=== PATIENT | female | born 1975 | race Caucasian/White ===

== ENCOUNTER → 2020-08-25 14:46 | Outpatient (CLI) | payer OTHER, SELFPAY ==
--- NOTE | ~2020-08-25 | MM_ITS ---
EXAMINATION: MM screening jessica BI w stephania HISTORY: Screening TECHNIQUE: Craniocaudal and mediolateral oblique 3-D tomosynthesis images were obtained and synthetic 2-D images were generated. CAD analysis was submitted and interpreted. COMPARISON: No prior mammogram is available for comparison at this institution. BREAST PARENCHYMAL COMPOSITION: There are scattered areas of fibroglandular density. FINDINGS: There is a focal asymmetry in the upper central aspect of the right breast, middle third. T here is no mammographic evidence for malignancy in the left breast. IMPRESSION: 1. Focal right breast asymmetry upper central aspect. 2. Additional mammographic views and possible breast ultrasound are recommended. BI-RADS Category 0: Incomplete: Needs additional imaging evaluation. Reviewed, dictated and finalized at location A. STAMPING PRESS OPERATOR IMPRESSION: 1. Focal right breast asymmetry upper central aspect. 2. Additional mammographic views and possible breast ultrasound are recommended . BI-RADS Category 0: Incomplete: Needs additional imaging evaluation.
== END ==
PROVIDERS: Visit Provider Obstetrics & Gynecology
DX: Z12.31 Encounter for screening mammogram for malignant neoplasm of breast (principal); R92.8 Other abnormal and inconclusive findings on diagnostic imaging of breast
CPT/HCPCS: 77063; 77067

== ENCOUNTER → 2020-09-30 10:42 | Outpatient (CLI) | payer OTHER, SELFPAY ==
--- NOTE | ~2020-09-30 | US_ITS ---
US right upper quadrant INDICATION: Right upper quadrant and back pain PROCEDURE: Realtime right upper abdominal ultrasound. COMPARISON: Ultrasound dated 06/29/2011 FINDINGS: The pancreas is normal without focal mass or pancreatic ductal dilation. Liver echotexture is normal without focal mass or intrahepatic biliary dilatation. There is normal directional flow i n the portal vein. The gallbladder is normal without stones, gallbladder wall thickening or pericholecystic fluid. Comm on bile duct measures 4 mm. No sonographic Samson's sign. IMPRESSION: 1: Normal limited abdominal ultrasound. Reviewed, dictated and finalized at location A.
== END ==
PROVIDERS: PCP Emergency Medicine; Visit Provider Emergency Medicine
DX: R10.9 Unspecified abdominal pain (principal)
CPT/HCPCS: 76705

== ENCOUNTER → 2020-10-02 09:00 | Outpatient (CLI) | payer OTHER, SELFPAY ==
--- NOTE | ~2020-10-02 | MMUS_ITS ---
EXAMINATION: MM diagnostic jessica RT w stephania, US breast RT limited HISTORY: Focal asymmetry of the right breast on screening mammogram TECHNIQUE: Additional 3-D tomosynthesis images of the right breast were performed and synthetic 2-D i mages were generated. CAD analysis was submitted and interpreted. High resolution limited right breas t ultrasound was performed. COMPARISON: 08/25/2020 FINDINGS: MAMMOGRAPHIC FINDINGS: No persistent focal asymmetry is identified with spot compression of the right breast. There is no ornelas spicious mass, calcification, or architectural distortion. ULTRASOUND: There is no evidence of focal abnormal solid or cystic mass in the vicinity of the mammographic findi ng in question. IMPRESSION: 1. No mammographic or sonographic evidence of malignancy. 2. Recommend routine screening mammography in one year. BI-RADS Category 1: Negative Reviewed, dictated and finalized at location A. IMPRESSION: 1. No mammographic or sonographic evidence of malignancy. 2. Recommend routine screening mammography in one year. BI-RADS Category 1: Negative
== END ==
PROVIDERS: Visit Provider Obstetrics & Gynecology
DX: R92.8 Other abnormal and inconclusive findings on diagnostic imaging of breast (principal)
CPT/HCPCS: 76642; 77061; 77065; G0279

== ENCOUNTER 2020-10-07 11:49 | Outpatient (CLI) | payer OTHER, SELFPAY ==
--- NOTE | ~2020-10-07 | MR_ITS ---
EXAMINATION: MR lumbar spine wo [facility] EXAM DATE: 10/07/2020 12:42 INDICATION: Dorsalgia. Paresthesia. Bowel and bladder dysfunction, difficulty walking. States injury 11 weeks ago when bending over. TECHNIQUE: Multi-sequential, multiplanar MR images of the lumbar spine were obtained without contrast . Sagittal T1, T2, T2 fat saturation images. Axial T2 weighted images. There is no prior study for comparison. FINDINGS: The conus medullaris terminates at the T12-L1 level and has normal signal intensity and mor phology. There is mild disc disease at L4-5 and L5-S1. There are no suspicious marrow signal abnorma lities. The vertebral bodies are aligned in the AP dimension. Paraspinal soft tissue is unremarkable. Level by level evaluation: T12-L1: Disc does not extend beyond the endplate margin. Facet arthropathy: None. Neural foraminal stenosis: No stenosis. Central canal stenosis: No stenosis. L1-L2: Disc does not extend beyond the endplate margin. Facet arthropathy: None. Neural foraminal stenosis: No stenosis. Central canal stenosis: No stenosis. L2-L3: Disc does not extend beyond the endplate margin. Facet arthropathy: Mild. Neural foraminal stenosis: No stenosis. Central canal stenosis: No stenosis. L3-L4: There is a mild diffuse disc bulge. Facet arthropathy: Mild to moderate. Neural foraminal stenosis: Mild to moderate bilateral. Central canal stenosis: Mild. L4-L5: There is a mild to moderate diffuse disc bulge. Facet arthropathy: Moderate. Neural foraminal stenosis: Mild to moderate bilateral. Central canal stenosis: Moderate. L5-S1: There is a mild diffuse disc bulge. Facet arthropathy: Mild. Neural foraminal stenosis: Mild bilateral. Central canal stenosis: Mild. IMPRESSION: 1. Mild to moderate lower lumbar spondylosis. Reviewed, dictated and finalized at location A.
== END 2020-10-07 11:50 | disposition home or self-care (01) ==
PROVIDERS: Visit Provider Emergency Medicine
DX: M47.817 Spondylosis without myelopathy or radiculopathy, lumbosacral region (principal); M48.07 Spinal stenosis, lumbosacral region; R20.2 Paresthesia of skin; K59.9 Functional intestinal disorder, unspecified; N31.9 Neuromuscular dysfunction of bladder, unspecified; G83.9 Paralytic syndrome, unspecified
CPT/HCPCS: 72148

== ENCOUNTER 2022-04-19 09:55 | Outpatient (CLI) | payer OTHER, SELFPAY ==
--- NOTE | ~2022-04-19 | NM_ITS ---
EXAMINATION: NM hepatobiliary wo pharm DATE: 04/19/2022 13:17 INDICATION: Abdominal pain COMPARISON: None. TECHNIQUE: 4.6 mCi Tc-99m mebrofenin (Choletec) was administered intravenously. Scintigraphic images of the abdomen were obtained for one hour. At the 1 hour time point, the patient drank 8 oz Ensure, and imaging was continued for 60 minutes. Gallbladder ejection fraction was calculated by the technol ogist. FINDINGS: There is normal clearance of radiotracer from the blood pool. There is homogeneous tracer u ptake by the liver. Activity progresses to the bowel and gallbladder. The gallbladder ejection fract ion (GBEF) is 74%. Note that with this technique, normal GBEF >= 33%. IMPRESSION: 1. Normal hepatobiliary scan Reviewed, dictated and finalized at location B.
== END 2022-04-19 09:56 | disposition home or self-care (01) ==
PROVIDERS: PCP Emergency Medicine; Visit Provider Emergency Medicine
DX: R10.9 Unspecified abdominal pain (principal)
CPT/HCPCS: 78226; A9537

== ENCOUNTER 2022-06-14 01:44 | Day surgery (SDC) | payer OTHER, SELFPAY ==
[2022-06-01 10:02] VITALS: BMI 39.4
[2022-06-14 07:33] VITALS: BP 121/87; PULSE 89; RESP 18; TEMP 36.1; O2SAT 100; BMI 38.3
[2022-06-14] MEDS: LACTATED RINGERS 1,000 ML 150 ML IV CONT (07:52)
--- NOTE | 2022-06-14 07:55 | WPDANESEPPF ---
Anes - Initial Pre Proc Eval Procedure: Operation Date: 06/14/22 08:45 Proposed Procedures p Esophagogastroduodenoscopy & Colonoscopy - Joe Gandhi MD Date/Time: 06/14/22 07:55 Surgeon: Joe Gandhi MD Pre Op Diagnosis: n/v,RUQ pain, change in bowel habits Patient Data Age: 47 Gender: F Height: 1.6 m Weight: 98.2 kg Last Vital Signs Temp 36.1 C L 06/14/22 07:33 Pulse 89 06/14/22 07:33 Resp 18 06/14/22 07:33 BP 121/87 06/14/22 07:33 Pulse Ox 100 06/14/22 07:33 O2 Del Method Room Air 06/14/22 07:33 Allergies Allergy/AdvReac Type Severity Reaction Status Date / Time No Known Allergies Allergy Verified 06/14/22 07:42 Home Medications Medication Instructions Recorded Confirmed Type metoprolol tartrate 50 mg tablet 50 mg PO DAILY 10/06/20 06/14/22 History tramadol 50 mg tablet (Ultram) 50 mg PO Q6H PRN pain #30 tabs 10/12/20 06/14/22 Rx ondansetron 4 mg disintegrating 4 mg PO Q6H PRN nausea and 04/13/22 06/14/22 Rx tablet vomiting #30 tabs Patient hx anesthesia problems: none Family hx anesthesia problems: none Results Review: All pre-operative results and documents have been reviewed as part of the pre-operative evaluation. [facility] Past Medical History Medical History Severe back pain Social History Social History (Updated 05/03/22 @ 16:10 by ARI McclureN-C) Smoking packs per day: 1 Smoking cigarettes per day: 20.0 Years smoked: 25 Smoking pack-years: 25.00 Smoking status: Former smoker Tobacco type: cigarettes Additional smoking assessment comments: 1.5 ppd for years, quit x 7 years then light smoker, then quit 01/07/21 Drinks per week: 6 Alcohol use details: 6 pack beer on weekend Substance use: never Substance use type: does not use Living arrangements: with family Spiritual care concerns: No Anes - Eval Final PreProcedure Day of Procedure 06/14/22 07:55 Patient weight: obese Heart: regular rate and rhythm Lungs: clear to auscultation Airway: Mallampati scale class II Neurological: alert and oriented Last oral intake: >/= 8 hours ASA classification: II Emergent: no Anesthetic plan: proceed Anesthesia type and monitoring: general GIVS and standard monitoring Results Review: All pre-operative results and documents have been reviewed as part of the pre-operative evaluation. Informed Consent: The patient's anesthetic plan and its attendant risks and benefits were discussed with the patient/family/POA. Questions were solicited and answers provided to the satisfaction of the patient/family/POA.
--- NOTE | 2022-06-14 08:36 | PM.HPGS ---
History of Present Illness History of Present Illness Consent: Risks, benefits, and alternatives have been discussed and questions answered. Patient agrees to proceed with procedure. Chief complaint: n/v,RUQ pain, change in bowel habits Narrative: Deloris Sapp is a 47 year old female with almost a year of intermittent nausea and ruq pain, negative imaging. Also needs screening colonoscopy Review of Systems Constitutional: Constitutional: Denies headache(s) and Denies weakness Eyes: Eyes: Denies blurry vision ENT: Reports Normal hearing present, Denies headache(s) and Denies neck pain Cardiovascular: Cardiovascular: Denies chest pain and Denies dyspnea Respiratory: Respiratory: Denies dyspnea Gastrointestinal: Gastrointestinal: Reports no additional gastrointestinal complaints Genitourinary: Genitourinary: Denies dysuria Musculoskeletal: Musculoskeletal: Denies neck pain Integumentary/Breasts: Skin/Breast: Denies dry skin Neurologic: Reports Normal hearing present, Denies headache(s) and Denies weakness Psychiatric: Psychiatric: Denies anxiety Endocrine: Endocrine: Denies change in body appearance Hematologic/Lymphatic: Hematologic/Lymphatic: Denies easy bleeding Allergic/Immunologic: Allergic/Immunologic: Denies urticaria PMF Past Medical History Medical History (Updated 06/14/22 @ 08:36 by Joe Gandhi MD) Colon cancer screening Severe back pain Social History Social History (Updated 05/03/22 @ 16:10 by ARI McclureN-C) Smoking packs per day: 1 Smoking cigarettes per day: 20.0 Years smoked: 25 Smoking pack-years: 25.00 Smoking status: Former smoker Tobacco type: cigarettes Additional smoking assessment comments: 1.5 ppd for years, quit x 7 years then light smoker, then quit 01/07/21 Drinks per week: 6 Alcohol use details: 6 pack beer on weekend Substance use: never Substance use type: does not use Living arrangements: with family Spiritual care concerns: No Meds Home Medications and Allergies Home Medications Medication Instructions Recorded Confirmed Type metoprolol tartrate 50 mg tablet 50 mg PO DAILY 10/06/20 06/14/22 History tramadol 50 mg tablet (Ultram) 50 mg PO Q6H PRN pain #30 tabs 10/12/20 06/14/22 Rx ondansetron 4 mg disintegrating 4 mg PO Q6H PRN nausea and 04/13/22 06/14/22 Rx tablet vomiting #30 tabs Allergies Allergy/AdvReac Type Severity Reaction Status Date / Time No Known Allergies Allergy Verified 06/14/22 07:42 Vital Signs Vital Signs - 24 hr 06/14/22 07:33 Temperature 96.9 F L Pulse Rate 89 Respiratory Rate 18 Blood Pressure 121/87 Pulse Oximetry 100 Oxygen Delivery Room Air Exam Const: General: comfortable and no acute distress HENMT: Face/Nose/Sinus: Normal nares present Eyes: General: appearance normal, both eyes and all related structures Neck: Neck: no JVD Resp: Auscultation: clear to auscultation bilaterally Cardio: Rate: regular rate Rhythm: regular rhythm GI: Inspection: non-distended GI Palp: Yes Soft to palpation Skin: General skin exam: normal color Neuro: General: gait normal Speech: normal speech Extrem: General: normal to inspection Psych: Mental Status: mental status grossly normal Assessment and Plan Assessment and plan (1) Nausea & vomiting: Code(s): R11.2 - Nausea with vomiting, unspecified Status: Acute Assessment and Plan: egd with bx (2) RUQ abdominal pain: Code(s): R10.11 - Right upper quadrant pain Status: Acute Assessment and Plan: negative hida and ultrasound (3) Colon cancer screening: Code(s): Z12.11 - Encounter for screening for malignant neoplasm of colon Status: Acute Assessment and Plan: colonoscopy
--- NOTE | 2022-06-14 09:03 | SUR.OPER ---
EGD START: 843; END: 847. COLONOSCOPY START: 852; END: 901.
[2022-06-14 09:07] VITALS: BP 109/65; PULSE 62; RESP 15; O2SAT 99
[2022-06-14 09:17] VITALS: BP 109/70; PULSE 61; RESP 22; O2SAT 97
[2022-06-14 09:27] VITALS: BP 126/91; PULSE 76; RESP 18; O2SAT 98
== END 2022-06-14 09:46 | disposition home or self-care (01) ==
PROVIDERS: PCP Emergency Medicine; Visit Provider Internal Medicine Gastroenterology
PROC: 0DJ08ZZ Inspection of Upper Intestinal Tract, Via Natural or Artificial Opening Endoscopic (ICD-10-PCS; CPT 43235; principal; 2022-06-14 08:45)
DX: Z12.11 Encounter for screening for malignant neoplasm of colon (principal); K21.00 Gastro-esophageal reflux disease with esophagitis, without bleeding; Z87.891 Personal history of nicotine dependence; E66.9 Obesity, unspecified; Z68.38 Body mass index [BMI] 38.0-38.9, adult
CPT/HCPCS: 45378; 43239; 88305; J2704; J3010; J7120

== ENCOUNTER 2022-07-08 13:31 | Outpatient (CLI) | payer OTHER, SELFPAY ==
--- NOTE | ~2022-07-08 | CT_ITS ---
EXAMINATION: CT abdomen pelvis w con INDICATION: Nausea and vomiting, right upper quadrant pain TECHNIQUE: Computed tomographic images of the abdomen and pelvis were obtained after the administrati on of 100 cc of Omnipaque 350 intravenous contrast. The dose-length product (DLP) was 828.57 mGy-cm. Automated exposure control and iterative reconstruction technique were employed. COMPARISON: None available FINDINGS: Minimal dependent atelectasis is present in the lung bases. The heart size is normal. There is a 5 mm cyst in the right hepatic lobe. The spleen, pancreas, gallbladder, and adrenal glands are normal. The kidneys are unremarkable. There is an umbilical hernia containing fat. No pathologically enlarged abdominal or pelvic lymph nodes are identified. There is no free intraperitoneal gas or evid ence of bowel obstruction. There is some performed stool in the distal small bowel, suggestive of slo w transit. The appendix is normal. IMPRESSION: 1. No CT correlate for the patient's symptoms. Reviewed, dictated and finalized at location B. S DEPARTMENT MANAGER
== END 2022-07-08 13:32 | disposition home or self-care (01) ==
PROVIDERS: PCP Emergency Medicine; Visit Provider Nurse Practitioner
DX: R11.2 Nausea with vomiting, unspecified (principal); R10.11 Right upper quadrant pain
CPT/HCPCS: 74177; Q9967

== ENCOUNTER 2022-07-19 07:28 | Outpatient (CLI) | payer OTHER, SELFPAY ==
--- NOTE | ~2022-07-19 | US_ITS ---
EXAMINATION: US right upper quadrant DATE: 07/19/2022 08:14 INDICATION: Right upper quadrant pain TECHNIQUE: Multiple grayscale and Doppler ultrasound images of the abdomen were obtained. COMPARISON: CT, 07/08/2022 FINDINGS: The head and body of the pancreas are normal. The pancreatic tail is obscured by bowel gas. The liver is normal with normal echogenicity and echotexture. No surface nodularity. Normal hepatope hayden flow in the main portal vein. The gallbladder is normal with no abnormal wall thickening, pericho lecystic fluid or stones. The normal common bile duct measures 4 mm. There was no sonographic Samson sign. IMPRESSION: 1. Normal sonographic study of the gallbladder. Reviewed, dictated and finalized at location L. IAN HISTORY PROFESSOR
== END 2022-07-19 07:29 | disposition home or self-care (01) ==
PROVIDERS: PCP Emergency Medicine; Visit Provider Emergency Medicine
DX: R10.11 Right upper quadrant pain (principal)
CPT/HCPCS: 76705

== ENCOUNTER 2023-07-06 08:54 | Outpatient (CLI) | payer OTHER, SELFPAY ==
--- NOTE | 2023-07-06 09:13 | ECG_ITS ---
Measurements Intervals [place] Rate: 73 P: 38 AL: 143 QRS: -37 QRSD: 86 T: 11 QT: 365 QTc: 404 Interpretive Statements SINUS RHYTHM LOW QRS VOLTAGE IN PRECORDIAL LEADS [QRS DEFLECTION < 1.0 mV IN CHEST LEADS] INFERIOR MYOCARDIAL INFARCTION , PROBABLY OLD [40+ ms Q WAVE AND/OR ST/T ABNORMALITY IN II/aVF] NO PREVIOUS ECG AVAILABLE FOR COMPARISON Electronically Signed On 07-06-2023 9:18:28 WAITER/WAITRESS FORMAL by Gypsy NEWELL
--- NOTE | 2023-07-06 12:28 | EST_ITS ---
Patient Info Name: Deloris Sapp Age: 48 years : 1975 Gender: Female Ht: 63 in Wt: 215 lbs BSA: 2.13 m2 HR: 72 bpm BP: 124 / 69 mmHg Heart Rhythm: Sinus Rhythm Exam Date: 07/06/2023 12:29 PM Patient Status: Outpatient Admit Date: 07/06/2023 Staff Ordering Physician: Aron Mayberry MD Attending Provider: Aron Mayberry MD Exercise Technologist: Connie Trimble CT Nurse: Danya Deleon APN Exam Type: CA stress test treadmill Study Info A treadmill exercise stress test was performed. Summary 1. Exercise capacity fair to good at 6-10 METS. 2. Occasional PVCs. 3. Baseline ECG artifact during exercise which limits interpretation of test, however, no clear evidence of ischemic changes during exercise. 4. Stress test supervised by Danya Walker NP. Stress test interpreted by Gypsy Qureshi MD. Protocol: Nael Rest HR: 72 bpm Peak HR: 148 bpm Rest Sys BP: 124 mmHg Peak Sys BP: 170 mmHg Max Pred HR: 174 bpm % Max Pred HR: 85 % Target HR: 148 bpm Max RPP: 25,160 bpm*mmHg Target HR Summary: Patient's target heart rate was achieved Total Time: 6 min : 35 sec Rest Martinez BP: 69 mmHg Peak Martinez BP: 76 mmHg Resting ECG Sinus rhythm. Stress ECG Sinus tachycardia. Baseline ECG artifact during exercise which limits interpretation of test, however, no clear evidence of ischemic changes during exercise. Arrhythmias Occasional PVCs. Report Signatures
== END 2023-07-06 08:55 | disposition home or self-care (01) ==
PROVIDERS: PCP Emergency Medicine; Visit Provider Emergency Medicine
DX: R07.9 Chest pain, unspecified (principal); R06.02 Shortness of breath
CPT/HCPCS: 93005; 93017

== ENCOUNTER 2023-07-12 06:35 | Outpatient (CLI) | payer OTHER, SELFPAY ==
--- NOTE | ~2023-07-12 | CT_ITS ---
Clinical Indication: Chest pain CT Scan of the Chest, Abdomen, and Pelvis with Contrast: Technique: Contiguous sections were acquired throughout the chest, abdomen, and pelvis after intraven ous administration of 100 cc of Omnipaque 350. Dose reduction technique was used on this scan by jovanni munguiaing automated exposure control and iterative reconstruction technique. The dose-length product (DL P) was 1144.77 mGy-cm. COMPARISON: 07/08/2022 Findings: There is no evidence of any significant mediastinal, hilar or axillary lymphadenopathy. The mediastin al soft tissues and vascular structures appear normal. There is no evidence of pleural or pericardial effusion. The lungs are clear. No pulmonary nodules or infiltrates are noted. The liver, spleen, pancreas, gallbladder, adrenals and kidneys are within normal limits. No evidence of aortic aneurysm. No lymphadenopathy. No bowel obstruction or bowel wall thickening. Small fat-containing umbilical hernia present. Normal appendix. Urinary bladder is unremarkable. Probable 3 cm left ovarian cyst. No adnexal mass seen. No ascites. Impression: Small fat-containing umbilical hernia. 3 cm left ovarian cyst. Reviewed, dictated and finalized at [facility]. TATION OPERATOR HELPER GENERATION Impression: Small fat-containing umbilical hernia. 3 cm left ovarian cyst.
== END 2023-07-12 06:36 | disposition home or self-care (01) ==
PROVIDERS: PCP Emergency Medicine; Visit Provider Emergency Medicine
DX: R07.9 Chest pain, unspecified (principal); R06.02 Shortness of breath; N83.202 Unspecified ovarian cyst, left side; K42.9 Umbilical hernia without obstruction or gangrene
CPT/HCPCS: 71260; 74177; Q9967

== ENCOUNTER → 2023-08-04 15:06 | Outpatient (CLI) | payer OTHER, SELFPAY ==
--- NOTE | ~2023-08-04 | MM_ITS ---
EXAMINATION: MM screening jessica BI w stephania HISTORY: Screening TECHNIQUE: Craniocaudal and mediolateral oblique 3-D tomosynthesis images were obtained and synthetic 2-D images were generated. CAD analysis was submitted and interpreted. COMPARISON: 08/25/2020 BREAST PARENCHYMAL COMPOSITION: There are scattered areas of fibroglandular density. FINDINGS: There is no evidence of suspicious mass, calcification, or architectural distortion to sugg est malignancy in either breast. There has been no suspicious interval change. IMPRESSION: 1. No mammographic evidence of malignancy. 2. Recommend routine screening mammography in one year. BI-RADS Category 1: Negative Reviewed, dictated and finalized at location A. NSION ASSOCIATE
== END ==
PROVIDERS: PCP Obstetrics & Gynecology; Visit Provider Obstetrics & Gynecology
DX: Z12.31 Encounter for screening mammogram for malignant neoplasm of breast (principal)
CPT/HCPCS: 77063; 77067

== ENCOUNTER 2023-09-11 09:57 | Outpatient (CLI) | payer OTHER, SELFPAY | END 2023-09-11 09:58 | disposition home or self-care (01) | LOC: ANHSURGERY 10:05 | PROVIDERS: PCP Emergency Medicine; Visit Provider Surgery | DX: N83.209 Unspecified ovarian cyst, unspecified side (principal); Z01.818 Encounter for other preprocedural examination | CPT/HCPCS: 36415; 86850; 86900; 86901 ==

== ENCOUNTER 2023-09-14 01:24 | Day surgery (SDC) | payer OTHER, SELFPAY ==
[2023-09-08 11:18] VITALS: BMI 36.8
--- NOTE | 2023-09-08 11:24 | PC.NURSE ---
Report to the Outpatient Waiting Room, entrance under the green pavilion located off [facility], at time 10:00 on date 09/14/23. Planned Procedure Time: 12:00. Time changes happen often and if your time is changed the preop area will call you the afternoon before. - You and your visitor will be asked to self-screen and do not enter if you have any COVID symptoms. - A mask is optional within the hospital at this time. Patients may have clear liquids (water, carbonated beverages, clear teas, apple juice) until 3 hours prior to surgery (4:30) with a maximum of 20 ounces. - No food from midnight until time of surgery Take the following medications with a SIP of water the morning of surgery: METOPROLOL DO NOT STOP ANY OF YOUR OTHER PRESCRIPTION MEDICATIONS PRIOR TO SURGERY ?EXCEPT THE FOLLOWING Medications to discontinue per physician: N/A Date to take last dose: N/A Please no make-up, nail burkinan, hairspray, perfume, deodorant, or body powder the day of surgery. No jewelry (including any body piercings) or valuables the day of surgery, leave them at home. Please take a shower or bath the night before, or the morning of, surgery with an antibacterial soap. Wear comfortable, loose fitting clothing. - Jewelry must be removed prior to entering the operating room. Rings and piercings that are not removed may be cut off. - The hospital will not accept responsibility for valuables. - Please leave all valuables, including medications, at home the day of surgery. If you are going home after surgery, a licensed tilt tray driver must drive you home. - NO public transportation without another adult if you receive anesthesia. - We recommend that an adult stay with you for 24 hours following discharge. - We also recommend that you do not drive, make important decision, drink alcoholic beverages, or take any drugs that were not prescribed by your health care provider for at least 24 hours after your discharge time. Follow any additional instructions given to you from your surgeon. If you or anyone in your household have experienced Covid symptoms in the past week, please notify your surgeon or the nurse liaison at the phone number below for possible testing. Telephone instructions given to WALI BEGUM and asked if any additional questions and then verbalized understanding. Patient advised to call surgeon office or pre surgery nurse liaison [phone] if any additional questions.
--- NOTE | 2023-09-13 13:15 | WPDANESEPPF ---
Anes - Initial Pre Proc Eval Procedure: Operation Date: 09/14/23 12:00 Proposed Procedures p Robotic Assisted Incarcerated Umbilical Hernia Repair with Mesh - Soledad Brewster MD s Laparoscopic Left Salpingo-oophorectomy - Jorge Simmons MD Date/Time: 09/13/23 13:15 Surgeon: Soledad Brewster MD Pre Op Diagnosis: Incarcerated Umb Hernia Patient Data Age: 48 Gender: F Height: 1.6 m Weight: 94.4 kg Allergies Allergy/AdvReac Type Severity Reaction Status Date / Time No Known Allergies Allergy Verified 09/08/23 11:18 Home Medications Medication Instructions Recorded Confirmed Type omeprazole 40 mg capsule,delayed See Rx Instructions .Route 07/12/22 09/08/23 Rx release .COMPLEX #90 caps metoprolol succinate 50 mg 50 mg PO .COMPLEX 07/07/23 09/08/23 History tablet,extended release 24 hr Patient hx anesthesia problems: none Family hx anesthesia problems: none Results Review: All pre-operative results and documents have been reviewed as part of the pre-operative evaluation. [facility] Past Medical History Medical History (Updated 09/14/23 @ 11:27 by Kai Delgado DO) Colon cancer screening MVP (mitral valve prolapse) Neurocardiogenic syncope Severe back pain Family History Family History Father Family history of cardiovascular disease Mother Family history of cardiovascular disease Social History Social History Smoking packs per day: 1 Smoking cigarettes per day: 20.0 Years smoked: 15 Smoking pack-years: 15.00 Smoking status: Former smoker Tobacco type: cigarettes Smoking end date: 07/10/20 Additional smoking assessment comments: 1.5 ppd for years, quit x 7 years then light smoker, then quit 01/07/21 Alcohol intake: current Drinks per week: 4 Alcohol use details: 6 pack beer on weekend Substance use: never Substance use type: does not use Lack of Transportation: No Lack of Food: Never True Current Housing: I Have Housing Concerned About Future Housing: No Difficulty Paying Gas/Electric Bills: No Difficulty Paying for Meds: No Currently Unemployed: No Education: Trade/Vocational Certificate Difficulty w/ Childcare or Family Care: No Living arrangements: with family Spiritual care concerns: No Anes - Eval Final PreProcedure Day of Procedure 09/13/23 13:15 Patient weight: obese Heart: regular rate and rhythm Lungs: clear to auscultation Airway: Mallampati scale class II Neurological: alert and oriented Last oral intake: >/= 8 hours ASA classification: II Emergent: no Anesthetic plan: proceed Anesthesia type and monitoring: general ETT and standard monitoring Results Review: All pre-operative results and documents have been reviewed as part of the pre-operative evaluation. Informed Consent: The patient's anesthetic plan and its attendant risks and benefits were discussed with the patient/family/POA. Questions were solicited and answers provided to the satisfaction of the patient/family/POA.
[2023-09-14] VITALS (12 sets, daily range): BP systolic 113–140; BP diastolic 68–83; PULSE 61–89; RESP 13–18; TEMP 36.7–36.8; O2SAT 92–100
[2023-09-14] MEDS: LACTATED RINGERS 1,000 ML 30 ML IV CONT ×2 (10:30→14:06)
[2023-09-14] MEDS: KETOROLAC 15 MG/ML VIAL (*BKC) IV PUSH ×2 (11:27→16:31)
[2023-09-14] MEDS: ACETAMINOPHEN 500 MG TABLET 1000 MG PO (11:27)
--- NOTE | 2023-09-14 11:45 | PM.IMHP ---
H&P: HPI History of Present Illness Date/Time: 09/14/23 11:45 Chief Complaint: incarcerated umbilical hernia Narrative: Ms. Sapp presents to the office at the request of Dr. Mayberry for evaluation.? She has a long-term history of periumbilical pain that intermittently radiates across her lower abdomen.? She underwent gallbladder work-up which was negative.? She has MVP and recently was experiencing SOB.? CT chest/abd/pel was performed and showed a small fat-containing umbilical hernia and a 3 cm left ovarian cyst.? No fevers, N/V, diarrhea, abdominal distesion, or change in bowel habits.? She is going to undergo concordant L SO c Dr. Simmons. Review of Systems Review of Systems: All systems reviewed & are unremarkable except as noted in HPI and below PMFSH Past Medical History Medical History Colon cancer screening MVP (mitral valve prolapse) Neurocardiogenic syncope Severe back pain Family History Family History Father Family history of cardiovascular disease Mother Family history of cardiovascular disease Social History Social History Smoking packs per day: 1 Smoking cigarettes per day: 20.0 Years smoked: 15 Smoking pack-years: 15.00 Smoking status: Former smoker Tobacco type: cigarettes Smoking end date: 07/10/20 Additional smoking assessment comments: 1.5 ppd for years, quit x 7 years then light smoker, then quit 01/07/21 Alcohol intake: current Drinks per week: 4 Alcohol use details: 6 pack beer on weekend Substance use: never Substance use type: does not use Lack of Transportation: No Lack of Food: Never True Current Housing: I Have Housing Concerned About Future Housing: No Difficulty Paying Gas/Electric Bills: No Difficulty Paying for Meds: No Currently Unemployed: No Education: Trade/Vocational Certificate Difficulty w/ Childcare or Family Care: No Living arrangements: with family Spiritual care concerns: No Meds Home Medications and Allergies Home Medications Medication Instructions Recorded Confirmed Type omeprazole 40 mg capsule,delayed See Rx Instructions .Route 07/12/22 09/08/23 Rx release .COMPLEX #90 caps metoprolol succinate 50 mg 50 mg PO .COMPLEX 07/07/23 09/08/23 History tablet,extended release 24 hr Allergies Allergy/AdvReac Type Severity Reaction Status Date / Time No Known Allergies Allergy Verified 09/08/23 11:18 Exam Const: General: cooperative, comfortable and no acute distress Resp: Auscultation: clear to auscultation bilaterally Cardio: Rate: regular rate Rhythm: regular rhythm GI: Inspection: normal to inspection and non-distended GI Palp: Yes abdominal tenderness, Yes Soft to palpation, Yes Tenderness to palpation present (GI) and Yes Hernia present Other: incarcerated [facility]H c mod TTP Assessment and Plan Assessment and plan (1) Umbilical hernia with obstruction, without gangrene: Code(s): K42.0 - Umbilical hernia with obstruction, without gangrene Status: Acute Assessment and Plan: Set up for robotic assisted repair with mesh (2) Ovarian cyst: Code(s): N83.209 - Unspecified ovarian cyst, unspecified side Status: Acute Assessment and Plan: Dr. Simmons planning on doing left salpingo oophorectomy (3) MVP (mitral valve prolapse): Code(s): I34.1 - Nonrheumatic mitral (valve) prolapse Status: Acute Assessment and Plan: cleared per Dr. Hoskins
--- NOTE | 2023-09-14 11:49 | WPDHPUPDATE1 ---
History and Physical Update Update Date/Time: 09/14/23 11:49 History and Physical has been reviewed, including an updated exam of the patient. There are NO changes in the patient's condition. Risks, benefits, and alternatives have been discussed and questions answered. Patient agrees to proceed with procedure.
[2023-09-14] MEDS: SCOPOLAMINE 1 MG PATCH 1 PATCH TRANSDERM (11:53)
--- NOTE | 2023-09-14 11:56 | PM.IMHP ---
H&P: HPI History of Present Illness Date/Time: 09/14/23 11:56 Chief Complaint: Painful ovarian cyst. Narrative: 48 y/o who is here for an umbilical hernia repair with Dr. Brewster. She also has a 3cm left ovarian cyst and longstanding pain in the left adnexa. She'd like to have an LSO. Review of Systems Review of Systems: All systems reviewed & are unremarkable except as noted in HPI and below PMFSH Past Medical History Medical History Colon cancer screening MVP (mitral valve prolapse) Neurocardiogenic syncope Severe back pain Family History Family History Father Family history of cardiovascular disease Mother Family history of cardiovascular disease Social History Social History Smoking packs per day: 1 Smoking cigarettes per day: 20.0 Years smoked: 15 Smoking pack-years: 15.00 Smoking status: Former smoker Tobacco type: cigarettes Smoking end date: 07/10/20 Additional smoking assessment comments: 1.5 ppd for years, quit x 7 years then light smoker, then quit 01/07/21 Alcohol intake: current Drinks per week: 4 Alcohol use details: 6 pack beer on weekend Substance use: never Substance use type: does not use Lack of Transportation: No Lack of Food: Never True Current Housing: I Have Housing Concerned About Future Housing: No Difficulty Paying Gas/Electric Bills: No Difficulty Paying for Meds: No Currently Unemployed: No Education: Trade/Vocational Certificate Difficulty w/ Childcare or Family Care: No Living arrangements: with family Spiritual care concerns: No Meds Home Medications and Allergies Home Medications Medication Instructions Recorded Confirmed Type omeprazole 40 mg capsule,delayed See Rx Instructions .Route 07/12/22 09/08/23 Rx release .COMPLEX #90 caps metoprolol succinate 50 mg 50 mg PO .COMPLEX 07/07/23 09/08/23 History tablet,extended release 24 hr Allergies Allergy/AdvReac Type Severity Reaction Status Date / Time No Known Allergies Allergy Verified 09/14/23 11:58 Exam Const: Orientation/consciousness: patient oriented x3 Other: Well-developed, well-nourished female in no acute distress. Neck: Thyroid: thyroid normal Lymphatic: no lymphadenopathy noted (in neck, axilla or inguinal nodes) Resp: Effort & Inspection: normal respiratory effort Auscultation: clear to auscultation bilaterally Cardio: Rate: regular rate Rhythm: regular rhythm Heart sounds: S1 normal heart sound present and S2 normal heart sound present GI: Other: ABD: Soft, nontender, nondistended. No guarding or rebound tenderness. No hepatosplenomegaly. : General: Yes no CVA tenderness Other: External genitalia: normal female hair distribution, without lesion. Urethral meatus: no lesion, non prolapsed. Bladder: no mass, nontender Vagina: well-estrogenized, without lesion or discharge. No cystocele or rectocele. Cervix: no lesion or discharge. Uterus: small, anteverted, freely mobile, nontender Adnexa: no mass or tenderness. Anus/perineum: no lesions, nontender Back/Spine/Pelvis: Back: no CVA tenderness Skin: General skin exam: normal color and no rashes or lesions noted Neuro: General: patient oriented x3 Extrem: Other: Extremities: nontender with no edema Psych: Mental Status: mental status grossly normal Affect: normal affect Assessment and Plan Assessment and plan (1) Left ovarian cyst: Code(s): N83.202 - Unspecified ovarian cyst, left side Status: Acute Assessment and Plan: A: Left adnexa cyst with pain. P: We have reviewed medical as well as surgical management options, and she prefers the latter. Specifically, she is interested in laparoscopic LSO. She understands risks of surgery to include risks of anesth
--- NOTE | 2023-09-14 11:58 | WPDHPUPDATE1 ---
History and Physical Update Update Date/Time: 09/14/23 11:58 History and Physical has been reviewed, including an updated exam of the patient. There are NO changes in the patient's condition. Risks, benefits, and alternatives have been discussed and questions answered. Patient agrees to proceed with procedure.
[2023-09-14] MEDS: ceFAZolin 2 GM/D5W 50 ML 2 GM/50 ML BAG IVPB (12:03)
--- NOTE | 2023-09-14 12:47 | W.PM.PROC2 ---
Procedure Note - Detailed Date of Procedure 09/14/23 Pre-op Diagnosis Left ovarian cyst Pain Post-op Diagnosis Same Procedure Performed Laparoscopic left salpingooophorectomy Surgeon Jorge Simmons MD Anesthesia General Findings Small left ovarian cyst. Normal-appearing right ovary. Normal-appearing uterus, anterior and posterior cul de sac, bilateral round ligaments, and bilateral uterosacral ligaments. Description of Procedure The patient was taken to the operating room where general endotracheal anesthesia was administered. She was prepared and draped in the usual sterile fashion in dorsal lithotomy position. The bladder was drained with a red rubber catheter. A sterile speculum was placed into the vagina. The anterior lip of the cervix was grasped with a single-tooth tenaculum. The acorn uterine manipulator was placed. The speculum was withdrawn. Gloves were changed and attention was turned the abdomen. A skin incision was made in the left, lateral mid abdomen with a scalpel. The abdomen was tented and a 5mm bladeless trocar was advanced under direct laparoscopic visualization. Pneumoperitoneum was administered using carbon dioxide gas. A survey of the pelvis and abdomen revealed the findings noted above. A second skin incision was made in the right lower quadrant and a 5 mm bladeless trocar was advanced under direct laparoscopic visualization. A third incision was made in the LLQ and an 11-12 mm port was similarly placed. The left adnexa was grasped and elevated. The left ureter was visualized. The Ligasure device was used to ligate and transect the left infundibulopelvic and uteroovarian ligaments. The specimen was placed in an endobag and passed off. The pedicle was inspected and was hemostatic. The vaginal instrumentation was withdrawn and hemostasis was excellent here as well. I was present and scrubbed through this entire portion of the procedure. The patient's care was then turned over to Dr. Brewster for his portion of the procedure, which will be documented under a separate cover. Implants None Estimated Blood Loss 5 Drains No Packing No Pathology Yes (Left tube and ovary) Complications None Condition Stable
[2023-09-14] MEDS: BUPIVACAINE/EPINEPHRINE 0.5% 30 ML VIAL INFILTRATE (13:27)
--- NOTE | 2023-09-14 14:23 | P.OP_ITS ---
Procedure Note - Detailed Date of Procedure 09/14/23 Pre-op Diagnosis Incarcerated Umbilical Hernia Post-op Diagnosis Same Procedure Performed Robotic assisted repair umbilical hernia with mesh, defect measuring approximately 3 cm Surgeon Soledad Brewster MD Anesthesia General Indications 48 y/o F presenting c moderate sized symptomatic incarcerated umbilical hernia. Please note patient has left ovarian cyst and is going to undergo concurrent left salpingo-oophorectomy by Dr. Simmons Findings 3 cm umbilical hernia c incarcerated preperitoneal fat Description of Procedure The patient was taken the operating room placed in the supine position. After adequate induction of general anesthesia, the patient was prepped and draped in normal sterile fashion. A time-out was then done to verify the patient's iden tity as well as the procedure being performed. Please note that the patient underwent laparoscopic left salpingo-oophorectomy by Dr. Simmons prior to my repair of the umbilical hernia. Please see his full operative report for details of that procedure. Please note that Dr. Simmons had already placed a 12 mm port in the left lower abdomen, 5 mm port in the left mid abdomen, and and additional 5 mm port in the right lower abdomen. Placed laparoscopic through the right lower quadrant 5 mm port site and under direct visualization replace the 12 mm left lower quadrant port to a robotic trocar, the left mid abdominal 5 mm port to an 8 mm robotic port, and added an additional 8 mm port in the left upper quadrant. The robot was then docked to the 3 port sites. I then went to the robotic console. I began by identifying the hernia. A moderate-sized incarcerated umbilical hernia was noted. I created a preperitoneal flap approximately 6 cm lateral to the hernia. This flap was carried widely superior and inferior to the defect. I then was able to reduce this hernia. The hernia was noted to contain a large amount of preperitoneal fat. Once reduced, I also reduced and dissected out the hernia sac. I then carried the flap distally past the hernia. I then closed the approximately 3 cm defect with 0 strata fix suture. I then placed a 10 x [address] mesh into the abdominal cavity. The positional stitch was placed in the middle of the mesh and brought up centering the mesh over the defect. Once this was done, I used 2 0 V lock suture x 2 to circumferentially suture the mesh to the abdominal wall. Once the mesh was completely sutured in, I was happy with our tension-free repair. The mesh was noted to have good overlap of the defect. I then removed the positi oning device. I then closed the flap with 2 0 V lock. At this point, the robot was undocked and all ports were removed. I then closed the 12 mm port site with an 0 Vicryl [id number] suture at the fascial level. All port sites were then closed with 4 O Monocryl subcuticular suture. The patient tolerated the procedure well, is extubated in the operating room postoperative, and will be transferred to the recovery room in stable condition. Implants 10 x 15 cm ventralight mesh Estimated Blood Loss 10 Drains No Packing No Pathology None sent Complications No immediate complications Condition Stable Disposition PACU [facility] Billing Surgery - Charge Forward: Surgery Billing
[2023-09-14] MEDS: fentaNYL CITRATE INJ (*CRX) 100 MCG/2 ML VIAL 25 MCG IV PUSH ×4 (14:28→15:48)
[2023-09-14] MEDS: oxyCODONE HCL (*CRX) 5 MG TAB IR PO (15:40)
== END 2023-09-14 17:14 | disposition home or self-care (01) ==
PROVIDERS: Obstetrics & Gynecology; PCP Emergency Medicine; Visit Provider Surgery
PROC: (CPT 49594; principal; 2023-09-14 12:00)
PROC: (CPT 49320; 2023-09-14 12:00)
DX: K42.9 Umbilical hernia without obstruction or gangrene (principal); N83.12 Corpus luteum cyst of left ovary; I34.1 Nonrheumatic mitral (valve) prolapse; E66.9 Obesity, unspecified; Z68.36 Body mass index [BMI] 36.0-36.9, adult; Z86.79 Personal history of other diseases of the circulatory system; Z87.891 Personal history of nicotine dependence; Z82.49 Family history of ischemic heart disease and other diseases of the circulatory system
CPT/HCPCS: 58661; 49594; S2900; 36415; 86850; 86900; 86901; 88305; A9270; C1781; J0690; J1170; J1885; J2250; J3010; J7030; J7120

== ENCOUNTER 2023-12-10 15:20 | Emergency (ER) | payer OTHER, SELFPAY ==
--- NOTE | ~2023-12-10 | XR_ITS ---
EXAMINATION: XR ankle LT min 3V DATE: 12/10/2023 15:57 INDICATION: Left ankle pain. TECHNIQUE: 4 views of left ankle were obtained. COMPARISON: None. FINDINGS: There is a transverse fracture of lateral malleolus with medial aspect of the fracture line 9 mm distal to the level of the tibial plafond. The distal fracture fragment demonstrates near-anato sudhakar alignment. Joint spaces are normal. There are enthesophytes at the posterior and plantar aspects of calcaneal tuberosity. There is lateral ankle soft tissue swelling. IMPRESSION: 1. Transverse fracture of lateral malleolus. Reviewed, dictated and finalized at location E.
[2023-12-10 15:30] VITALS: BP 125/75; PULSE 92; RESP 20; TEMP 36.9; O2SAT 98
--- NOTE | 2023-12-10 15:39 | ED.LOWEXIN ---
HPI - Extremity Injury (Lower) General Chief Complaint: Extremity Injury, Lower Stated Complaint: left ankle injury Source: patient Mode of arrival: ambulatory Limitations: no limitations History of Present Illness HPI Narrative: 48 y/o female presented for c/o left ankle pain and swelling after injury today when she walked outside into the sun from a dark building and missed the step causing her to roll the ankle and land on hands and knees. Denies any other injury. Drove herself using a stick shift vehicle after the injury, but reports pain shooting up the side of the leg and to the toes. Has not taken anything for pain. Related Data Home Medications Medication Instructions Recorded Confirmed metoprolol succinate 50 mg 50 mg PO .COMPLEX 07/07/23 12/10/23 tablet,extended release 24 hr Allergies Allergy/AdvReac Type Severity Reaction Status Date / Time No Known Allergies Allergy Verified 12/10/23 15:42 Review of Systems Review of Systems: CONSTITUTIONAL: Denies body aches, fever, chills CARDIOVASCULAR: Denies chest pain, palpitations, or edema. RESPIRATORY: Denies cough or dyspnea. GASTROINTESTINAL: Denies abdominal pain, nausea, vomiting, or diarrhea. SKIN: Denies rash, itching, or wounds. MUSCULOSKELETAL: reports left ankle pain NEUROLOGIC: Denies headache, numbness, tingling, or weakness. All systems reviewed & are unremarkable except as noted in HPI and below PMFSH Past Medical History Medical History Colon cancer screening MVP (mitral valve prolapse) Neurocardiogenic syncope Severe back pain Surgical History Surgical History Hx of umbilical hernia repair Robotic assisted repair umbilical hernia with mesh, defect measuring approximately 3 cm 09/14/23 Family History Family History Father Family history of cardiovascular disease Mother Family history of cardiovascular disease Social History Social History Smoking packs per day: 1 Smoking cigarettes per day: 20.0 Years smoked: 15 Smoking pack-years: 15.00 Smoking status: Former smoker Tobacco type: cigarettes Smoking end date: 07/10/20 Additional smoking assessment comments: 1.5 ppd for years, quit x 7 years then light smoker, then quit 01/07/21 Alcohol intake: current Drinks per week: 4 Alcohol use details: 6 pack beer on weekend Substance use: never Substance use type: does not use Lack of Transportation: No Lack of Food: Never True Current Housing: I Have Housing Concerned About Future Housing: No Difficulty Paying Gas/Electric Bills: No Difficulty Paying for Meds: No Currently Unemployed: No Education: Trade/Vocational Certificate Difficulty w/ Childcare or Family Care: No Living arrangements: with family Spiritual care concerns: No Comments At time of signature, I have reviewed and agree with nursing past medical, surgical, social and family history unless otherwise noted. Please see nursing chart for further information. There is no relevant family history pertinent to the presenting complaint Exam Narrative: GENERAL: Well-appearing CHEST: Speaks in full sentences. No respiratory distress. HEART: Regular rate and rhythm. Normal and equal peripheral pulses. EXTREMITIES: Left lateral ankle swelling, bruising, and tenderness to lateral malleolus. Decreased range of motion with flexion/extension/rotation of ankle due to subjective pain with movement. Left foot has normal strength and sensation, No open wounds, or obvious deformity; alignment normal, pulse palpable and equal bilaterally, skin warm, dry, pink. Capillary refill less than 3 seconds. SKIN: Warm, dry, no rash. NEURO: Alert and oriented x3. PSYCH: Normal mood and affect Course Course [facility]
[2023-12-10] MEDS: IBUPROFEN 400 MG TABLET 800 MG PO (16:24)
== END 2023-12-10 16:45 | disposition home or self-care (01) ==
PROVIDERS: Emergency Provider Nurse Practitioner Family; PCP Emergency Medicine
DX: S82.65XA Nondisplaced fracture of lateral malleolus of left fibula, initial encounter for closed fracture (principal); X50.9XXA Other and unspecified overexertion or strenuous movements or postures, initial encounter; Z87.891 Personal history of nicotine dependence; I34.1 Nonrheumatic mitral (valve) prolapse
CPT/HCPCS: 29515; 73610; 99214; A9270; G0463

== ENCOUNTER 2024-03-04 15:45 | Outpatient (RCR) | payer OTHER, SELFPAY ==
--- NOTE | 2024-02-05 16:15 | OPREHPOC ---
Outpatient Therapy Plan of Care This is a Multidisciplinary Plan of Care that may contain components documented by all disciplines (PT, OT, and ST.) PT Problem 1 PT Problem #1 Knowledge Deficit PT Goal 1 Goal 1. Patient will perform independent HEP Target Visit 3 PT Problem 2 PT Problem #2 Pain PT Goal 1 Goal 1. Patient will report ankle pain no higher than 2 /10 Target Visit 8 PT Problem 3 PT Problem #3 Impaired Range of Motion PT Goal 1 Goal 1. Left dorsiflexion to 10 degrees to normalize gait pattern Target Visit 8 PT Problem 4 PT Problem #4 Impaired Gait PT Goal 1 Goal 1. Patient will ambulate at least 300 feet on 2 minute walk test without gait deviations Target Visit 8 PT Problem 5 PT Problem #5 Impaired Functional ADLs PT Goal 1 Goal 1. Patient will navigate stairs reciprocally and without pain Target Visit 8
--- NOTE | 2024-02-05 16:15 | PTOPEVAL1 ---
Assessment and note entered by Keri Horan DPT Evaluation Information Assessment Status Evaluation Diagnosis s82.63xa ICD-10 Condition Codes (PT) M25.572,Difficulty Walking R26.2,Weakness R53.1 Subjective Information Pt reports she fell on 12/10/23 leaving to a baby shower due to a difference in the floor level that was not marked well. Fractured L fibula. Pt did not have to have surgery, was put in a soft cast for awhile and then given a walking boot for awhile. Currently has been told to use walking boot as needed and to not walk barefoot or in sandals yet. Highest pain recently 7/10 and lowest 0/10. States she has had some swelling but it has gone down overall. Has not returned to doing yard work and is not walking for exercise yet. Is doing more cooking and cleaning but they take her longer, modifies car transfers. Puts both feet on each step at home (stairs to basement laundry). Prior to injury patient was active and pain free, did all activities at home such as cooking and cleaning. Works from home and sits at a desk, tries to get up when possible. Patient goal: walk more than I can now, move my ankle better Returns to MD February 25. History of multiple ankle sprains as a child. Reported Pain Level Pain Score 0: Self Report Assessment PT Clinical Summary The patient is presenting to skilled therapy following a displaced fracture of lateral malleolus of left fibula. She presents with decreased ankle range of motion in all planes, gait and stair impairments which are contributing to her pain and difficulty performing typical activities at home including yard work. She will highly benefit from therapy to address these impairments in order to reduce pain and return to prior level of function. Plan of Care Interventions Electrical Stimulation,Gait Training,Hot Pack/Cold Pack,Manual Therapy,Neuro Re-education,Patient/ Caregiver Education,Therapeutic Activities, Therapeutic Exercise PT Services Indicated Yes Treatment Frequency and 2 times a week for 8 visits Duration
--- NOTE | 2024-02-28 09:54 | PCPTNOTE ---
Patient was canceled 02/21/24 due to therapist out with illness.
--- NOTE | 2024-03-04 16:10 | OPREHPOC ---
Outpatient Therapy Plan of Care This is a Multidisciplinary Plan of Care that may contain components documented by all disciplines (PT, OT, and ST.) PT Problem 1 PT Problem #1 Knowledge Deficit PT Goal 1 Goal / Goal Update 1. Patient will perform independent HEP Target Visit 3 Progress Met PT Problem 2 PT Problem #2 Pain PT Goal 1 Goal / Goal Update 1. Patient will report ankle pain no higher than 2 /10 Target Visit 8 Progress Met PT Problem 3 PT Problem #3 Impaired Range of Motion PT Goal 1 Goal / Goal Update 1. Left dorsiflexion to 10 degrees to normalize gait pattern Target Visit 8 Progress Partially Met PT Problem 4 PT Problem #4 Impaired Gait PT Goal 1 Goal / Goal Update 1. Patient will ambulate at least 300 feet on 2 minute walk test without gait deviations Target Visit 8 Progress Met PT Problem 5 PT Problem #5 Impaired Functional ADLs PT Goal 1 Goal / Goal Update 1. Patient will navigate stairs reciprocally and without pain Target Visit 8 Progress Met
--- NOTE | 2024-03-04 16:11 | PTOPDC ---
Assessment and note entered by Keri Horan DPT Evaluation Information Assessment Status Discharge Diagnosis s82.63xa ICD-10 Condition Codes (PT) M25.572,Difficulty Walking R26.2,Weakness R53.1 Subjective Information Highest pain recently 2/10 and lowest 0/10. Has been released from [facility]. Pain with a lot of stairs from putting laundry away over the last week. Used to walk for exercise but still has not done that. Is doing more activity at home than she was a month ago. Reported Pain Level Pain Score 0: Self Report Assessment PT Clinical Summary The patient has made excellent progress in therapy . She reports decreased pain and improved function at home. She demonstrates greatly improved ankle motion in all planes, improved strength, and improved gait speed and pattern. Due to her progress, plan for discharge at this time. She has been educated to continue HEP and follow up with MD and/or PT as needed. Plan of Care PT Services Indicated No
== END 2024-03-05 07:49 | disposition home or self-care (01) ==
LOC: ANHGOSHPT 15:45
PROVIDERS: PCP Emergency Medicine; Visit Provider Physician Assistant Surgical
DX: S82.63XD Displaced fracture of lateral malleolus of unspecified fibula, subsequent encounter for closed fracture with routine healing (principal)
CPT/HCPCS: 97110; 97116; 97161; 97530

== ENCOUNTER 2025-04-16 15:07 | Outpatient (CLI) | payer OTHER, SELFPAY ==
--- NOTE | ~2025-04-16 | MM_ITS ---
EXAMINATION: MM screening jessica BI w stephania HISTORY: Screening TECHNIQUE: Craniocaudal and mediolateral oblique 3-D tomosynthesis images were obtained and synthetic 2-D images were generated. CAD analysis was submitted and interpreted. COMPARISON: Comparison to multiple prior studies sequentially, with oldest reviewed study dated , 08/25/2020 BREAST PARENCHYMAL COMPOSITION: There are scattered areas of fibroglandular density. FINDINGS: There is no evidence of suspicious mass, calcification, or architectural distortion to suggest malignancy in either breast. IMPRESSION: 1. No mammographic evidence of malignancy. 2. Recommend routine screening mammography in one year. BI-RADS Category 1: Negative Reviewed, dictated and finalized at location B.
== END 2025-04-16 15:08 | disposition home or self-care (01) ==
LOC: MICIMG 15:08
PROVIDERS: PCP Internal Medicine; Visit Provider Obstetrics & Gynecology
DX: Z12.31 Encounter for screening mammogram for malignant neoplasm of breast (principal)
CPT/HCPCS: 77063; 77067